=== PATIENT | female | born 1950 | race Caucasian/White ===

== ENCOUNTER 2019-02-02 14:45 | Emergency (ER) | payer OTHER ==
[~2019-02-02] VITALS: Ht 149.9 cm; Wt 78.5 kg
[2019-02-02 14:51] VITALS: Ht 149.9 cm; Wt 78.5 kg
[2019-02-02 17:02] VITALS: BP 119/56
== END 2019-02-02 17:02 | disposition home or self-care (01) ==
LOC: ED 14:45
DX: N81.10 Cystocele, unspecified (principal); N39.0 Urinary tract infection, site not specified; Z90.710 Acquired absence of both cervix and uterus